=== PATIENT | male | born 1995 ===

== ENCOUNTER 2021-02-24 13:06 | Emergency (ER) | payer SELFPAY ==
[2021-02-24 14:33] VITALS: BP 124/75
--- NOTE | 2021-02-24 17:09 | Emergency Department Report ---
- General Chief Complaint: Laceration/Recheck/Suture Stated Complaint: RIGHT HAND CUT Time Seen by Provider: 02/24/21 16:53 Source: patient Mode of arrival: Ambulatory Limitations: No Limitations - History of Present Illness Initial Comments: 25-year-old male presents to the ER today complaining of a laceration to the dorsal aspect of his right hand. Patient states that around 12 PM today he excellently struck his right hand against a wall while trying to get his dog under control. He reports pain mainly of the laceration and some mild bleeding. He is right-hand dominant. He is not up-to-date on his tetanus. He reports no other symptoms at this time. -: Sudden - Related Data Allergies Allergy/AdvReac Type Severity Reaction Status Date / Time No Known Allergies Allergy Unverified 02/24/21 14:32 ED Review of Systems ROS: Stated complaint: RIGHT HAND CUT Other details as noted in HPI Comment: All other systems reviewed and negative Constitutional: denies: chills, fever Eyes: denies: eye pain, eye discharge, vision change ENT: denies: ear pain, throat pain Respiratory: denies: cough, shortness of breath, wheezing Gastrointestinal: denies: abdominal pain, nausea, diarrhea Genitourinary: denies: urgency, dysuria Musculoskeletal: arthralgia Skin: other (laceration) Neurological: denies: headache, weakness, paresthesias Psychiatric: denies: anxiety, depression, auditory hallucinations, visual hallucinations, homicidal thoughts, suicidal thoughts Hematological/Lymphatic: denies: easy bleeding, easy bruising, swollen glands ED Past Medical Hx - Past Medical History Previous Medical History?: No - Surgical History Past Surgical History?: No ED Physical Exam - General Limitations: No Limitations General appearance: alert, in no apparent distress - Neck Neck exam: Present: normal inspection, full ROM - Respiratory Respiratory exam: Present: normal lung sounds bilaterally. Absent: respiratory distress - Cardiovascular Cardiovascular Exam: Present: regular rate, normal rhythm, normal heart sounds - Neurological Exam Neurological exam: Present: alert, oriented X3, CN II-XII intact, normal gait - Skin Skin exam: Present: other (~2cm laceration noted over the 3rd knuckle of the right hand; tendon is visible through the wound but no apparent tendon laceration. Patient has full flexion extension of the third and CP joint. No active bleeding at this time. Mild swelling and mild tenderness around the wound. No obvious Fb) ED Course Vital Signs 02/24/21 14:30 Temperature 98.1 F Pulse Rate 86 Respiratory 16 Rate Blood Pressure 124/75 O2 Sat by Pulse 97 Oximetry - Laceration /Wound Repair Right Dorsal Hand Wound Location: upper extremity (right hand over the right knuckle) Wound's Depth, Shape: superficial Wound Explored: clean Irrigated w/ Saline (ccs): 30 Betadine Prep?: Yes Anesthesia: 1% Lidocaine Volume Anesthetic (ccs): 2 Wound Repaired With: sutures Suture Size/Type: 4:0 Number of Sutures: 6 Sterile Dressing Applied?: Yes Progress: Patient tolerated procedure well without any complication. ED Medical Decision Making - Radiology Data Radiology results: report reviewed Patient: TAYLOR GUALLPA MR#: [id number] : 1995 Acct:[id number] Age/Sex: 25 / M ADM Date: 02/24/21 Loc: ED Attending Dr: Ordering Physician: DELL ESCALANTE Date of Service: 02/24/21 Procedure(s): XR hand 3+V RT Accession Number(s): [id number] cc: DELL ESCALANTE Fluoro Time In Minutes: RIGHT HAND 3 VIEWS INDICATION / CLINICAL INFORMATION: Right hand laceration/contusion. History of hitting a wall with right hand earlier today. COMPARISON: None available. FINDINGS: BONES and JOINT(S): No acute fracture or subluxation. No significant arthritis. SOFT TISSUES: Mild edema is seen dorsally and medially along the hand with a laceration seen on the lateral view dorsally at the level of the MCP joints measuring up to 5-6 mm. ADDITIONAL FINDINGS: None. IMPRESSION: Right hand swelling/laceration as above without an acute osseous abnormality. Signer Name: Rafat Hunter MD Signed: 02/24/2021 5:45 PM Workstation Name: [id number] Transcribed By: [place] Dictated By: Rafat Hunter MD Electronically Authenticated By: Rafat Hunter MD Signed Date/Time: 02/24/211744 DD/ 43 TD/TT: Critical care attestation.: If time is entered above; I have spent that time in minutes in the direct care of this critically ill patient, excluding procedure time. ED Disposition Clinical Impression: Hand laceration Disposition: DC-01 TO HOME OR SELFCARE Is pt being admited?: No Does the pt Need Aspirin: No Condition: Stable Instructions: Laceration Care, Adult, [id number] Additional Instructions: Recommend that you keep the area clean daily with soap and water. Do not use peroxide or alcohol. After you clean the wound, dry well and apply thin layer of Neosporin. Do this daily until its time to have the stitches removed. The stitches will need to be removed in 10 to 12 days. Recommend limited use of your hand and finger for the next 5 days. You can take Tylenol and ibuprofen from [id number] to help with any pain. Follow-up with your PCP or return to the ER if there is any signs of infection such as increasing pain, redness, swelling or pus drainage. Referrals: PRIMARY CARE, [Primary Care Provider] - 3-5 Days Time of Disposition: 18:27
--- NOTE | 2021-02-24 17:50 | XRay Report ---
RIGHT HAND 3 VIEWS INDICATION / CLINICAL INFORMATION: Right hand laceration/contusion. History of hitting a wall with right hand earlier today. COMPARISON: None available. FINDINGS: BONES and JOINT(S): No acute fracture or subluxation. No significant arthritis. SOFT TISSUES: Mild edema is seen dorsally and medially along the hand with a laceration seen on the l ateral view dorsally at the level of the MCP joints measuring up to 5-6 mm. ADDITIONAL FINDINGS: None. IMPRESSION: Right hand swelling/laceration as above without an acute osseous abnormality. Signer Name: Rafat Hunter MD Signed: 02/24/2021 5:45 PM Workstation Name: [id number]
[2021-02-24] MEDS ORDERED: TETANUS,DIPH,PERTUSS(ACELL) VACCINE 0.5 ML SYRINGE IM ONE (18:27)
[2021-02-24] MEDS ORDERED: NEOMY 3.5 MG/BACIT 400 UNITS/POLY B 5000 UNITS/GM OINT PACKET TP ONE (18:27)
== END 2021-02-24 18:57 | disposition home or self-care (01) ==
LOC: ED 13:06
DX: S61.411A Laceration without foreign body of right hand, initial encounter (principal); W22.8XXA Striking against or struck by other objects, initial encounter; Y93.89 Activity, other specified; Y92.89 Other specified places as the place of occurrence of the external cause; Y99.8 Other external cause status
CPT/HCPCS: 12001; 73130; 90471; 90715; 99283; A6250

== ENCOUNTER 2021-03-07 21:21 | Emergency (ER) | payer SELFPAY ==
[2021-03-07 22:57] VITALS: BP 106/72
== END 2021-03-08 | disposition left against medical advice (07) ==
LOC: ED 21:21
DX: Z00.8 Encounter for other general examination (principal); Z53.21 Procedure and treatment not carried out due to patient leaving prior to being seen by health care provider